=== PATIENT | female | born 1940 | race Caucasian/White ===

== ENCOUNTER 2024-10-22 13:36 | Inpatient (IN) | payer MEDICARE, SELFPAY ==
[2024-10-22] VITALS (9 sets, daily range): BP systolic 115–167; BP diastolic 59–89; BMI 26.5
[2024-10-22 10:47] LABS: % Basophils 0.9 % (0-2); % Eosinophils 2.7 % (0-6); % Immature Granulocytes 0.6 % (0-0.5); % Monocytes 6.7 % (1.7-9.3); % Neutrophils 70.1 % (42.2-75.2); Absolute Basophils 0.1 10^3/uL (0-0.2); Absolute Eosinophils 0.3 10^3/uL (0-0.7); Absolute Immature Granulocytes 0.1 10^3/uL (0-0.05); Absolute Monocytes 0.7 10^3/uL (0.1-0.6); Absolute Neutrophils 7.3 10^3/uL (1.4-6.5); Hematocrit 35.5 % (37.0-47.0); Hemoglobin 11.8 g/dL (12.0-16.0); Mean Corp Hgb Conc. 33.2 g/dL (33.0-37.0); Mean Corpuscular Hgb 29.1 pg (27.0-31.0); Mean Corpuscular Volume 87.7 fL (81.0-99.0); Mean Platelet Volume 11.5 fL (7.4-10.4); Nucleated Red Blood Cells % 0 %; Platelet Count 253 10^3/uL (130-400); Red Blood Cell Count 4.05 10^6/uL (4.20-5.40); Red Cell Dist. Width 14.6 % (11.5-14.5); White Blood Cell Count 10.4 10^3/uL (4.8-10.8)
--- NOTE | 2024-10-22 10:47 | ED.GENMED ---
History of Present Illness
General
Chief Complaint: Pneumonia Symptoms
Source: patient
Exam Limitations: none
Time Seen by Provider: 10/22/24 10:14
Nursing documentation reviewed up to this point in time: agreed with
History of Present Illness
History of Present Illness:
Patient is an 83-year-old female with history of pulmonary fibrosis, CHF, CAD presenting to the emergency department with 3 days of cough, chest tightness, and low pulse ox at urgent care. Patient reports gradually worsening dry cough, chest
tightness, and shortness of breath over the past few days. Her has similar symptoms although much more mild. She denies any associated fever, chills, abdominal pain, vomiting. She states the cough is not productive. No lower extremity
edema. No recent travel or recent surgeries.
Patient was seen in urgent care today where she was found to have a low pulse ox of 87% on room air. She was sent to the emergency department via EMS. She was negative for COVID and influenza at urgent care. They did perform a chest x-ray.
Past History
Past History
ED Past Medical History: Other (anemia)
ED Past Surgical History: Appendectomy, Cholecystectomy and Orthopedic
Review of Systems
Review of Systems
Allergies reviewed?: Yes
All Other Systems: ROS reviewed and negative except as documented in HPI and ROS
Phy Exam
Physical Exam
Physical Exam:
Vitals: Hypoxic, placed on 2 L NC. Otherwise stable vital signs.
General: Patient is well appearing, no acute distress
Skin: Warm and dry, no rashes or lesions
Head: Normocephalic, atraumatic
Eyes: Sclera nonicteric. EOMs intact. No nystagmus.
Throat: Protecting airway
Neck: Normal ROM, no cervical spine tenderness, no meningismus
Cardiac: Regular rate and rhythm, no murmurs. Mild reproducible chest wall tenderness.
Pulm: Hypoxic. Rales in b/l lower lung basilio and frequent cough. No wheeze.
Abdomen: Abdomen soft and nontender.
Extremities: No evidence of cyanosis or edema. Palpable DP pulses bilaterally
Neuro: AAOx3. Grossly intact.
Psychiatric: Normal affect.
Course
Orders/Labs/Results
Orders:
Orders
10/22/24 Lunch
Regular
At Your Request: Limited Participation
Does patient need a safe tray?: No
10/22/24 10:32
Electrocardiogram (*1) Urgent
Reason for Study: Chest Pain
EKG- Treatment ONCE
10/22/24 10:37
Complete Blood Count/With Diff Urgent
Comprehensive Metabolic Panel Urgent
NT-proBNP Urgent
Troponin I Urgent
10/22/24 11:28
CefTRIAXone [Rocephin] 1,000 mg IV NOW STA
Doxycycline [Vibramycin] 100 mg PO NOW STA
10/22/24 13:14
Admit/Transfer Patient As Directed
Co-Sign Provider:
Level of Care: Inpatient admission
Assign to:: Medical/Surgical
Physician / Group: hospitalist-Julius
Diagnosis: pna
Reason for Hospitalization: IV abx
O2 requirements
Expected length of stay greater than two midnights?: Yes
ELOS- Estimated Length of Stay in days: 3
I certify the patient meets the requirements for IP care: Yes
PRN Pain Medication Management As Directed
May give lesser potent ordered pain med per pt: Yes
preference::
Protocol:: Medication orders for pain may be administered in a
manner that supports deferring to patient preference
when the pt is:
- Requesting an ordered lesser potent pain medication.
Least to most potent pain medications are defined
as: acetaminophen < NSAID < tramadol < opioids
(morphine, oxycodone, hydromorphone).
- Requesting a lesser dose of the same medication IF
ORDERED.
- Requesting a less intrusive route of administration
if both routes are prescribed by the provider (PO <
IV).
10/22/24 13:16
Code Status As Directed
Resuscitation Status: Full Code
10/22/24 15:52
Acetaminophen [Tylenol] 650 mg PO Q4HPRN PRN
Benzonatate [Tessalon Perles] 100 mg PO TIDPRN PRN
Ipratropium/Albuterol Sulfate [Duoneb] 3 ml INH R Q4HPRN PRN
10/22/24 15:52
Respiratory Culture/Gram Stain Urgent
KARL Source: Sputum
Specimen Description:
Activity As Directed
Activity Level: Out of Bed-Early Mobility
Intake/ Output As Directed
Frequency: Per unit guidelines
Vital Signs As Directed
Frequency: Per unit guidelines
Weight As Directed
Frequency: Once
Comment: on admission
Incentive Spirometry [Rx Incentive Spirometry] [RESP] Routine
Frequency: q1h while awake
O2 Therapy [RESP] Routine
Titrate/Wean O2 to maintain O2 sat greater than (%): 90
Special Instructions: Wean as tolerated
Pt Eval And Treat Routine
Activity Level: Out of Bed-Early Mobility
DX Deep Vein Thrombosis Video Routine
10/22/24 18:00
Dexamethasone Sod Phosphate [Decadron] 4 mg IV Q8H
Enoxaparin Sodium [Lovenox] 40 mg SC QPM
10/22/24 20:00
Budesonide [Pulmicort] 0.5 mg INH R BID
Doxycycline [Vibramycin] 100 mg PO BID
Guaifenesin [Mucinex] 600 mg PO Q12
10/22/24 22:00
Atorvastatin [Lipitor] 20 mg PO HS
Gabapentin [Neurontin] 600 mg PO HS
Oxybutynin Chloride [Ditropan] 5 mg PO HS
Ropinirole [Requip] 4 mg PO HS
10/23/24 04:47
Complete Blood Count/No Diff IN AM
Comprehensive Metabolic Panel IN AM
10/23/24 07:00
Levothyroxine [Synthroid] 88 mcg PO DAILY@0700
10/23/24 08:00
Citalopram [Celexa] 20 mg PO DAILY
Ferrous Sulfate [Ferrous Sulfate Oral Liquid] 220 mg PO DAILY
Multivitamin [Theragran] 1 tablet PO DAILY
Vit C/Vit E/Lutein/Min/Dellroy-3 [Ocuvite Softgel] 1 cap PO DAILY
10/23/24 12:00
CefTRIAXone [Rocephin] 1,000 mg IV Q24H
Abnormal Lab Results
10/22/24
10:37
RBC 4.05 L 10^6/uL
(4.20-5.40)
Hgb 11.8 L g/dL
(12.0-16.0)
Hct 35.5 L %
(37.0-47.0)
RDW 14.6 H %
(11.5-14.5)
MPV 11.5 H fL
(7.4-10.4)
Abs Immat Gran (auto) 0.1 H 10^3/uL
(0-0.05)
Absolute Neuts (auto) 7.3 H 10^3/uL
(1.4-6.5)
Absolute Monos (auto) 0.7 H 10^3/uL
(0.1-0.6)
Immature Gran % 0.6 H %
(0-0.5)
Lymphocytes % 19.0 L %
(20.5-51.1)
Chloride 110 H mmol/L
(98-107)
Glucose 105 H mg/dl
(70-99)
10/22/24 10:37
10/22/24 10:37
Vital Signs
Initial and Last Documented VS:
Initial Vital Signs
Temp Pulse Resp BP Pulse Ox
97.8 F 64 20 129/70 90
10/22/24 10:10 10/22/24 10:10 10/22/24 10:10 10/22/24 10:10 10/22/24 10:10
Last Documented Vital Signs
Temp Pulse Resp BP Pulse Ox
98.4 F 84 16 112/55 95
10/23/24 07:30 10/23/24 07:41 10/23/24 07:41 10/23/24 07:30 10/23/24 10:47
MDM/Problems Addressed
Differential Diagnosis Includes:
Not limited to: Viral illness, bronchitis, pneumonia, acute CHF exacerbation, acute coronary syndrome, etc.
MDM/Problems Addressed:
83-year-old female with history as documented presenting with 3 days of cough, chest tightness, found to have low pulse ox at urgent care. No known fever. No GI symptoms. Patient arrives on 2 L O2 via nasal cannula as she was supposedly 87% on
room air at urgent care. Otherwise her vital signs are stable, she is afebrile. Physical exam as above. Heart regular rate and rhythm. Patient has frequent cough with bilateral rales on lung exam. There is no wheezing. Abdomen soft and
nontender. No lower extremity edema. Overall impression is likely infectious process including viral illness, bronchitis, or pneumonia. Will obtain basic labs. Low suspicion for acute coronary syndrome although will check troponin. Will have
radiology input chest x-ray obtained for urgent care for review.
Update: Labs reviewed. No leukocytosis. Mild anemia which is stable. Labs unremarkable. Troponin undetectable. Chest x-ray reviewed by me which shows a suspected left lower lobe pneumonia. Patient is requiring supplemental oxygen. In lieu of
this�will admit for IV antibiotics, continued management. Borderline prolonged QTc on EKG�will initiate Rocephin, p.o. doxycycline in ED. Patient accepted to hospitalist service in stable condition.
Chronic conditions affecting care:
Congestive heart failure, CAD
Acute Exacerbation and/or Progression of Chronic Illness:
N/A
*Pulse Oximetry
Patient hypoxic: yes (Arrives on 2 L nasal cannula, 87% on room air at )
*EKG
Interpreted by ED Provider?: Yes
EKG Intrepretation Date: 10/22/24
Interpretation: abnormal
Comparison EKG: changes noted
Heart Rate: 63
Rate: normal
Rhythm: sinus
[place]: normal axis
Interval: long QT
QRS Pattern: right bundle branch block
Ischemia: no ischemia
*Skin Care Instructor Interpretation
Rate: Skin Care Instructor- N/A
*Critical Care Note
Total Time (30-74mins, 75-104mins- exclusive of procedures): Not Applicable
Data Reviewed
Review of Other/Old Records Reveals: Radiology Studies (Chest x-ray performed urgent care-opacity left lower lobe)
Source: previous radiology exam
Patient Management
Discussion with other providers: Hospitalist
Escalation/DeEscalation of care consider admission/obs:
Admit indicated
ED Attending Note
-
Portions of this chart may have been created with voice recognition software.� Occasional wrong word or��sound alike� substitutions may have occurred due to the inherent limitations of voice recognition software.
Discharge Plan
Departure
Patient Disposition: Admit
Date of Disposition: 10/22/24
Time of Disposition: 11:28
Presentation/result/management discussed w/ accepting MD/DO: Hospitalist
Discharge Problem:
Left lower lobe pneumonia, Acute hypoxemic respiratory failure
Interventions
Interventions:
*Risk Screen - Suicide Last Done: 10/22/24 10:10
*General Assessment Last Done: 10/22/24 10:10
*Neglect/Abuse Screening Last Done: 10/22/24 10:10
*ED- Fall Risk Assessment Last Done: 10/22/24 15:22
*ED COVID-19 Vaccine History Last Done: 10/22/24 11:00
*Nursing Disposition Last Done: 10/22/24 15:48
ED- Cardiac Assessment Last Done: 10/22/24 11:00
ED- Pulmonary Assessment Last Done: 10/22/24 11:00
Discharge Date and Time
Discharge Date/Time: 10/22/24 15:48
[2024-10-22 10:58] LABS: ALT (SGPT) 19 U/L (0-35); AST (SGOT) 34 U/L (14-36); Albumin 4.4 g/dl (3.5-5.0); Alkaline Phosphatase 111 U/L (38-126); Blood Urea Nitrogen 13 mg/dl (7-17); Calcium 9.6 mg/dl (8.4-10.2); Carbon Dioxide 22 mmol/L (22-30); Chloride 110 mmol/L (98-107); Glucose 105 mg/dl (70-99); Potassium 4.1 mmol/L (3.5-5.1); Sodium 144 mmol/L (135-145); Total Bilirubin 0.8 mg/dl (0.2-1.3); Total Protein 7.7 g/dl (6.3-8.2); eGFR > 60.00
[2024-10-22 11:09] LABS: NT-proBNP 774 pg/ml; Troponin I < 0.012 ng/ml
[2024-10-22] MEDS: VIBRAMYCIN 100 MG PO ×2 (11:58→20:00)
[2024-10-22] MEDS: ROCEPHIN 1000 MG IV (11:58)
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
--- NOTE | 2024-10-22 16:00 | CM ---
requirements manager reviewed patient's chart and met with patient and daughter and granddaughter at bedside, patient lives with spouse, Macho and daughter in a one story home, patient is independent with adl's and ambulation, no dme, home when stable, no
needs.
PCP: Dr Grey Headley
Pharmacy: [facility] in [place]
Plan; Home when stable, no needs.
--- NOTE | 2024-10-22 17:05 | PTCARENOTE ---
Pt was received from ED at 1600. Pt walked to the room with assistance of one person. Pt is AAOx3, dyspnea on exertion and at rest. 2L NC on, POX 96%. Pt resting in bed, conversing with family at the bedside.
[2024-10-22] MEDS: DECADRON 4 MG IV (17:50)
[2024-10-22] MEDS: LOVENOX 40 MG SC (17:50)
[2024-10-22] MEDS: PULMICORT 0.5 MG INH (19:34)
[2024-10-22] MEDS: DUONEB 3 ML INH (19:35)
[2024-10-22] MEDS: MUCINEX 600 MG PO (20:00)
[2024-10-22] MEDS: NEURONTIN 600 MG PO (21:06)
[2024-10-22] MEDS: DITROPAN 5 MG PO (21:06)
[2024-10-22] MEDS: LIPITOR 20 MG PO (21:07)
[2024-10-22] MEDS: REQUIP 4 MG PO (21:07)
[2024-10-23] MEDS: DECADRON 4 MG IV ×3 (03:02→17:39)
[2024-10-23 05:11] VITALS: BMI 26.3
[2024-10-23] MEDS: SYNTHROID 88 MCG PO (05:41)
[2024-10-23 05:44] LABS: Hematocrit 32.7 % (37.0-47.0); Hemoglobin 10.6 g/dL (12.0-16.0); Mean Corp Hgb Conc. 32.4 g/dL (33.0-37.0); Mean Corpuscular Hgb 28.6 pg (27.0-31.0); Mean Corpuscular Volume 88.4 fL (81.0-99.0); Mean Platelet Volume 11.8 fL (7.4-10.4); Platelet Count 259 10^3/uL (130-400); Red Cell Dist. Width 14.6 % (11.5-14.5); White Blood Cell Count 9.3 10^3/uL (4.8-10.8)
[2024-10-23 06:11] LABS: ALT (SGPT) 15 U/L (0-35); AST (SGOT) 25 U/L (14-36); Albumin 3.4 g/dl (3.5-5.0); Alkaline Phosphatase 93 U/L (38-126); Blood Urea Nitrogen 14 mg/dl (7-17); Calcium 9.1 mg/dl (8.4-10.2); Carbon Dioxide 23 mmol/L (22-30); Chloride 111 mmol/L (98-107); Estimated Creatinine Clearance 39 ml/min; Glucose 146 mg/dl (70-99); Potassium 4.9 mmol/L (3.5-5.1); Sodium 143 mmol/L (135-145); Total Bilirubin 0.5 mg/dl (0.2-1.3); Total Protein 6.4 g/dl (6.3-8.2); eGFR > 60.00
[2024-10-23 07:30] VITALS: BP 112/55
[2024-10-23] MEDS: PULMICORT 0.5 MG INH ×2 (07:38→18:41)
[2024-10-23] MEDS: THERAGRAN 1 TABLET PO (08:28)
[2024-10-23] MEDS: MUCINEX 600 MG PO ×2 (08:28→21:13)
[2024-10-23] MEDS: CELEXA 20 MG PO (08:28)
[2024-10-23] MEDS: OCUVITE SOFTGEL 1 CAP PO (08:28)
[2024-10-23] MEDS: FERROUS SULFATE ORAL LIQUID 220 MG PO (08:28)
[2024-10-23] MEDS: VIBRAMYCIN 100 MG PO ×2 (08:28→21:13)
[2024-10-23] MEDS: TESSALON PERLES 100 MG PO (08:41)
--- NOTE | 2024-10-23 11:26 | W.PN.HOSP.TC ---
Today's Communication/Plan
-
wean O2 to off
cont ABX
repeat CXR in AM
consider pulm consult in AM
Assessment / Plan
Assessment / Plan
pt is an 83 year old female
Acute hypoxemic respiratory insufficiency--likely due to community-acquired pneumonia (does not meet sepsis criteria)--continue supplemental oxygen and wean as able keeping pulse ox greater than 90%--continue Rocephin and doxycycline--add incentive
spirometer, DuoNebs, Tessalon Perles--continue inhaled steroids (Pulmicort)--start IV Decadron 4 mg IV every 8-- consult pulmonary in AM--recheck CXR in AM
Restless leg syndrome--continue gabapentin and ropinirole
Hypothyroidism--continue levothyroxine
Hyperlipidemia--continue simvastatin
Overactive bladder--continue oxybutynin
DVT proph--Lovenox subcu
CODE STATUS--full code
Anticipated Discharge: 24 - 48 hours
Subjective/Interval History
-
Date of Service: October 23, 2024
pt down to 1/2L of O2 at 95%--coughs with deep breaths
Objective Data
-
Labs:
Laboratory Results
10/23/24
04:47
WBC 9.3
Hgb 10.6 L
Hct 32.7 L
Plt Count 259
Sodium 143
Potassium 4.9
Chloride 111 H
Carbon Dioxide 23
BUN 14
Creatinine 0.8
Glucose 146 H
Calcium 9.1
Total Bilirubin 0.5
AST 25
ALT 15
Alkaline Phosphatase 93
Vital Signs:
max temp for 24 hours
10/23/24
07:30
Temp 98.4 F
Vital Signs
Temp Pulse Resp BP Pulse Ox
98.4 F 84 16 112/55 95
10/23/24 07:30 10/23/24 07:41 10/23/24 07:41 10/23/24 07:30 10/23/24 10:47
I&O
10/22/24 10/23/24 10/24/24
06:59 06:59 06:59
Intake Total 120 / 120
Balance 120 / 120
Review of Systems
-
All other systems: Reviewed and negative
Physical Exam
-
General: Well Developed, Well Nourished and No Apparent Distress
HEENT: Normocephalic, Atraumatic and Oxygen
Respiratory: Rhonchi (bilateral bases)
Cardiac: Regular Rhythm and S1/S2; Negative Murmur
GI: Soft, Nontender, Nondistended and Normal Bowel Sounds
Musculoskeletal: No Clubbing, No Cyanosis and No Edema
Skin: Warm
Neuro: Awake
[2024-10-23] MEDS: ROCEPHIN 1000 MG IV (11:33)
[2024-10-23] MEDS: STERILE WATER FOR INJECTION 10 ML IV (11:34)
[2024-10-23 14:13] VITALS: PULSE 82
[2024-10-23 15:39] VITALS: BP 125/56
[2024-10-23] MEDS: LOVENOX 40 MG SC (17:39)
[2024-10-23] MEDS: DUONEB 3 ML INH (18:41)
[2024-10-23] MEDS: NEURONTIN 600 MG PO (21:12)
[2024-10-23] MEDS: DITROPAN 5 MG PO (21:13)
[2024-10-23] MEDS: REQUIP 4 MG PO (21:13)
[2024-10-23] MEDS: LIPITOR 20 MG PO (21:13)
[2024-10-23 23:23] VITALS: BP 131/66
[2024-10-24] MEDS: DECADRON 4 MG IV ×3 (01:15→19:59)
[2024-10-24 05:38] VITALS: BMI 26.4
[2024-10-24] MEDS: SYNTHROID 88 MCG PO (06:02)
[2024-10-24] MEDS: DUONEB 3 ML INH ×2 (07:28→19:45)
[2024-10-24] MEDS: PULMICORT 0.5 MG INH ×2 (07:28→19:44)
[2024-10-24 07:30] VITALS: BP 104/67
[2024-10-24] MEDS: VIBRAMYCIN 100 MG PO ×2 (09:03→20:00)
[2024-10-24] MEDS: OCUVITE SOFTGEL 1 CAP PO (09:04)
[2024-10-24] MEDS: CELEXA 20 MG PO (09:04)
[2024-10-24] MEDS: THERAGRAN 1 TABLET PO (09:04)
[2024-10-24] MEDS: FERROUS SULFATE ORAL LIQUID 220 MG PO (09:04)
[2024-10-24] MEDS: MUCINEX 600 MG PO ×2 (09:04→20:00)
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
[2024-10-24] MEDS: STERILE WATER FOR INJECTION 10 ML IV (12:05)
[2024-10-24] MEDS: ROCEPHIN 1000 MG IV (12:05)
[2024-10-24] MEDS: MOTRIN 200 MG PO ×2 (13:37→20:01)
[2024-10-24 15:25] VITALS: BP 167/77
--- NOTE | 2024-10-24 15:34 | W.PN.HOSP.TC ---
Addendum entered and electronically signed by Quin Madrid MD 10/24/24 16:27:
I saw and evaluated the patient independently. I reviewed the resident�s note and agree with findings and plan as documented by Dr. Verde.
GENERAL: well developed, well nourished, female in no apparent distress
HEENT: NC/AT -- O2 NC 2L
HEART: regular rate and rhythm, +S1, +S2
LUNGS : coarse crackles bilaterally, no wheezing with decreased BS at bases
ABDOM: soft, nontender, nondistended, + bowel sounds
EXT: no cyanosis, clubbing, or edema
NEUROLOGIC: grossly intact
Acute hypoxemic respiratory insufficiency--likely due to community-acquired pneumonia (does not meet sepsis criteria)--continue supplemental oxygen and wean as able keeping pulse ox greater than 90%--continue Rocephin and doxycycline--add incentive
spirometer, Rachael Eugene--continue inhaled steroids (Pulmicort)--start IV Decadron 4 mg IV every 8-- consult pulmonary in AM (pt with hx of pulm fibrosis)--recheck CXR shows pna resolved--will need home O2 assessment--procalcitonin
pending
Restless leg syndrome--continue gabapentin and ropinirole
Hypothyroidism--continue levothyroxine
Hyperlipidemia--continue simvastatin
Overactive bladder--continue oxybutynin
DVT proph--Lovenox subcu
CODE STATUS--full code
Original Note:
Today's Communication/Plan
-
Continue IV Decadron
Home O2 evaluation eventually
Chest CT if symptoms do not improve
Continue antibiotics for now to complete 5-day course
Assessment / Plan
Assessment / Plan
Impression
Acute hypoxic respiratory insufficiency
Restless leg syndrome
Hypothyroidism
Hyperlipidemia
Overactive bladder
Plan
Acute hypoxic acute hypoxic respiratory insufficiency
Likely due to CAP/interstitial pulmonary fibrosis
Continue supplemental oxygen, wean as able keep pulse ox greater than 90%
Continue IV Decadron
Tylenol and Motrin for CP with cough
Continue nebsRachael
Home O2 assessment eventually
Pulmonology following
Procalcitonin pending
Repeat chest CT if symptoms are not improving
Restless leg syndrome--continue gabapentin and ropinirole
Hypothyroidism--continue levothyroxine
Hyperlipidemia--continue simvastatin
Overactive bladder--continue oxybutynin
DVT proph--Lovenox subcu
CODE STATUS--full code
Anticipated Discharge: > 48 hours
Subjective/Interval History
-
Date of Service: October 24, 2024
No overnight events
Objective Data
-
Vital Signs:
Vital Signs
Temp Pulse Resp BP Pulse Ox
97.8 F 74 16 104/67 92
10/24/24 07:30 10/24/24 07:32 10/24/24 07:32 10/24/24 07:30 10/24/24 09:30
I&O
10/23/24 10/24/24 10/25/24
06:59 06:59 06:59
Intake Total 120 / 120 660 / 660
Balance 120 / 120 660 / 660
Review of Systems
-
All other systems: Reviewed and negative
Physical Exam
-
General: No Apparent Distress and Comfortable
HEENT: Normocephalic and Atraumatic
Respiratory: Crackles and Decreased Breath Sounds (Left lower)
Cardiac: Regular Rhythm and S1/S2; Negative Murmur or Rub
GI: Soft, Nontender and Nondistended
Musculoskeletal: No Edema
Neuro: AO x 3
Psych: Calm
Data Reviewed
-
Diagnostic Radiology: Image personally visualized and interpreted, Report Reviewed by me and Discussed with Physician
Labs: Labs Reviewed by me and Discussed with Physician
--- NOTE | 2024-10-24 15:44 | CM ---
Patient seen at bedside with and physicians. Patient for home O2 assessment closer to D/C and may benefit from home with VN. Patient and open to possibility. CM will continue to follow for discharge planning needs.
Plan;home with VN and watch for home O2 needs.
[2024-10-24] MEDS: LOVENOX 40 MG SC (17:14)
[2024-10-24] MEDS: TYLENOL 650 MG PO (17:14)
--- NOTE | 2024-10-24 17:46 | PTCARENOTE ---
Received patient this am AAOx3. Pt off unit for Chest X-ray this am. Pt ambulating to bathroom with stand by assistance. Pt tolerated diet well. Pt complained of muscle pain secondary to coughing. Pt medicated with Motrin with moderate relief. Pt
then ordered scheduled Tylenol starting at 1800. Made patient comfortable. Cont to assess patient status.
[2024-10-24] MEDS: ROBITUSSIN 200 MG PO (20:01)
[2024-10-24] MEDS: NEURONTIN 600 MG PO (21:33)
[2024-10-24] MEDS: LIPITOR 20 MG PO (21:34)
[2024-10-24] MEDS: DITROPAN 5 MG PO (21:34)
[2024-10-24] MEDS: REQUIP 4 MG PO (21:34)
[2024-10-24] MEDS: ANESTHETIC LOZENGE 1 LOZENGE PO (22:57)
[2024-10-24 23:07] VITALS: BP 137/68
[2024-10-25] MEDS: TYLENOL PO (01:00)
[2024-10-25] MEDS: SYNTHROID 88 MCG PO (05:48)
[2024-10-25] MEDS: TYLENOL 650 MG PO ×2 (05:48→12:11)
[2024-10-25 06:29] VITALS: BMI 26.6
[2024-10-25 06:38] LABS: % Basophils 0.3 % (0-2); % Eosinophils 0.4 % (0-6); % Immature Granulocytes 1.3 % (0-0.5); % Lymphocytes 9.4 % (20.5-51.1); % Monocytes 5.1 % (1.7-9.3); % Neutrophils 83.5 % (42.2-75.2); Absolute Eosinophils 0.1 10^3/uL (0-0.7); Absolute Immature Granulocytes 0.2 10^3/uL (0-0.05); Absolute Lymphocytes 1.3 10^3/uL (1.2-3.4); Absolute Monocytes 0.7 10^3/uL (0.1-0.6); Absolute Neutrophils 11.2 10^3/uL (1.4-6.5); Hematocrit 31.3 % (37.0-47.0); Hemoglobin 10.8 g/dL (12.0-16.0); Mean Corp Hgb Conc. 34.5 g/dL (33.0-37.0); Mean Corpuscular Hgb 29.8 pg (27.0-31.0); Mean Corpuscular Volume 86.5 fL (81.0-99.0); Nucleated Red Blood Cells % 0 %; Red Blood Cell Count 3.62 10^6/uL (4.20-5.40); Red Cell Dist. Width 14.8 % (11.5-14.5); White Blood Cell Count 13.5 10^3/uL (4.8-10.8)
[2024-10-25 06:50] LABS: Blood Urea Nitrogen 29 mg/dl (7-17); Calcium 9.3 mg/dl (8.4-10.2); Carbon Dioxide 20 mmol/L (22-30); Chloride 110 mmol/L (98-107); Estimated Creatinine Clearance 35 ml/min; Glucose 150 mg/dl (70-99); Magnesium 1.8 mg/dl (1.6-2.3); Potassium 4.4 mmol/L (3.5-5.1); Sodium 140 mmol/L (135-145); eGFR > 60.00
[2024-10-25 07:04] LABS: Procalcitonin < 0.05 ng/ml (0.0-0.25)
[2024-10-25] MEDS: DUONEB 3 ML INH (07:16)
[2024-10-25] MEDS: PULMICORT 0.5 MG INH (07:16)
[2024-10-25 07:21] LABS: Mean Platelet Volume 12.7 fL (7.4-10.4); Platelet Count 232 10^3/uL (130-400)
[2024-10-25 07:25] VITALS: BP 126/66
[2024-10-25] MEDS: THERAGRAN 1 TABLET PO (09:06)
[2024-10-25] MEDS: CELEXA 20 MG PO (09:06)
[2024-10-25] MEDS: MUCINEX 600 MG PO (09:06)
[2024-10-25] MEDS: DECADRON 4 MG IV (09:07)
[2024-10-25] MEDS: VIBRAMYCIN PO (09:07)
[2024-10-25] MEDS: FERROUS SULFATE ORAL LIQUID 220 MG PO (09:07)
[2024-10-25] MEDS: OCUVITE SOFTGEL 1 CAP PO (09:07)
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
[2024-10-25 11:02] VITALS: PULSE 91; O2SAT 93
[2024-10-25] MEDS: MOTRIN 200 MG PO (12:19)
[2024-10-25 15:25] VITALS: BP 115/74
--- NOTE | 2024-10-25 15:37 | CM ---
Patient seen at bedside with physician and patient . Patient did not qualify for home O2 per physician and declined VN. Patient completed IMM and signed form placed on chart. Patient for discharge later today. CM will continue to follow for
discharge planning needs.
Plan; for home with no needs.
--- NOTE | 2024-10-25 15:45 | W.PN.HOSP.TC ---
Addendum entered and electronically signed by Quin Madrid MD 10/25/24 16:33:
I saw and evaluated the patient independently. I reviewed the resident�s note and agree with findings and plan as documented by Dr. Verde.
GENERAL: well developed, well nourished, female in no apparent distress
HEENT: NC/AT
HEART: regular rate and rhythm, +S1, +S2
LUNGS : coarse crackles bilaterally, no wheezing with decreased BS at bases
ABDOM: soft, nontender, nondistended, + bowel sounds
EXT: no cyanosis, clubbing, or edema
NEUROLOGIC: grossly intact
Acute hypoxemic respiratory insufficiency--likely due to community-acquired pneumonia (does not meet sepsis criteria)--continue supplemental oxygen and wean as able--assessment for home O2 does not qualify for O2--stop Rocephin and doxycycline--add
incentive spirometer, Rachael Eugene--continue inhaled steroids (Pulmicort)-- IV Decadron 4 mg IV every 8 changing to prednisone taper-- apprec pulmonary in AM (pt with hx of pulm fibrosis)--recheck CXR shows pna resolved---procalcitonin
neg
Restless leg syndrome--continue gabapentin and ropinirole
Hypothyroidism--continue levothyroxine
Hyperlipidemia--continue simvastatin
Overactive bladder--continue oxybutynin
DVT proph--Lovenox subcu
CODE STATUS--full code
Original Note:
Today's Communication/Plan
-
Discharge plan today. Passed home O2 eval test. No oxygen needed at home.
Dispo medications :
Prednisone taper
Doxycycline 100 mg twice daily to complete full 5-day course
Outpatient follow-up with pulmonology
Continue all other home medications
Assessment / Plan
Assessment / Plan
Impression
Acute hypoxic respiratory insufficiency
Restless leg syndrome
Hypothyroidism
Hyperlipidemia
Overactive bladder
Plan
Acute hypoxic acute hypoxic respiratory insufficiency-- resolved
Likely due to CAP/interstitial pulmonary fibrosis
Transition to prednisone taper
Tylenol and Motrin for CP with cough
Continue Rachael oquendo
Home O2 assessment reveals 88 to 90% on room air. No O2 needed at home
Stopped antibiotic with negative procalcitonin
Discharge plan today
Patient requested to finish antibiotics, can complete doxycycline for 5 days total
Restless leg syndrome--continue gabapentin and ropinirole
Hypothyroidism--continue levothyroxine
Hyperlipidemia--continue simvastatin
Overactive bladder--continue oxybutynin
DVT proph--Lovenox subcu
CODE STATUS--full code
Anticipated Discharge: Today
Subjective/Interval History
-
Date of Service: October 25, 2024
No overnight events
Objective Data
-
Labs:
Laboratory Results
10/25/24
05:59
WBC 13.5 H
Hgb 10.8 L
Hct 31.3 L
Plt Count 232
Sodium 140
Potassium 4.4
Chloride 110 H
Carbon Dioxide 20 L
BUN 29 H
Creatinine 0.9
Glucose 150 H
Calcium 9.3
Vital Signs:
Vital Signs
Temp Pulse Resp BP Pulse Ox
98.6 F 71 18 126/66 96
10/25/24 07:25 10/25/24 07:25 10/25/24 07:25 10/25/24 07:25 10/25/24 09:20
I&O
10/24/24 10/25/24 10/26/24
06:59 06:59 06:59
Intake Total 660 / 660 900 / 900
Balance 660 / 660 900 / 900
Review of Systems
-
All other systems: Reviewed and negative
Physical Exam
-
General: No Apparent Distress and Comfortable
HEENT: Normocephalic and Atraumatic
Respiratory: Crackles (Bilaterally at the bases)
Cardiac: Regular Rhythm and S1/S2
GI: Soft, Nontender and Nondistended
Musculoskeletal: No Edema
Neuro: AO x 3
Psych: Calm
Data Reviewed
-
Diagnostic Radiology: Image personally visualized and interpreted, Report Reviewed by me and Discussed with Physician
Labs: Labs Reviewed by me and Discussed with Physician
--- NOTE | 2024-10-25 17:35 | W.DCSUMMARY ---
Addendum entered and electronically signed by Quin Madrid MD 10/26/24 06:58:
Read, reviewed, and agree. See same day progress note for additional details. Time spent coordinating care, DC planning, review of DC plan of care with resident, transition of care, review of records in EMR, med rec, consults, notes, d/w
consultants, nursing, family, and CM = 31 minutes
Original Note:
Discharge Summary
Discharge Data
Date of Admission: 10/22/24
Date of Discharge: 10/25/24
-
Pending Results: No
Hospital Course
Discharging Physician : Dr Dixie Verde, Dr Quin Madrid
Disposition : Home
Primary care physician : Grey Headley
Principal Discharge diagnosis :
Acute hypoxic acute hypoxic respiratory insufficiency likely due to CAP/interstitial pulmonary fibrosis
Chronic Discharge diagnosis :
History of pulmonary fibrosis
Restless leg syndrome
Hypothyroidism
Hyperlipidemia
Overactive bladder
Hospital Course : 83-year-old female with history of interstitial pulmonary fibrosis presented with hypoxia from urgent care. Patient was started on IV antibiotics, DuoNebs, incentive spirometer, Pulmicort and IV Decadron. Pulmonology was
consulted. They were not impressed with a chest x-ray and patient's symptoms was likely an acute exacerbation of IPF. Procalcitonin was negative. IV antibiotics were stopped. Home O2 eval revealed O2 >88% on RA, no O2 needed at home. At
discharge she is hemodynamically stable, transitioned to oral prednisone taper and an additional dose of doxycycline to complete total 5-day course. Advised to follow-up with pulmonology outpatient
Important imaging findings :
10/25/2024 CXR
No acute cardiopulmonary process. Stable mild chronic fibrosis.
Procedure findings : none
Discharge Plan
-
Patient Disposition: Home (Routine Discharge)
Discharge Diagnosis/Procedures: Acute hypoxic respiratory insufficiency
Restless leg syndrome
Hypothyroidism
Hyperlipidemia
Overactive bladder
Condition: Good
Diet: Regular
Activity: No restrictions
Driving Restrictions: As prior to admission
Bathing Restrictions: None
Other Services: VN
Referrals:
Aracely Joseph, DO [Active] - in two to three weeks
(PFT w/ ORDER PROCESSING SPECIALIST
Can keep upcoming appt with Dr Parnell as well)
Grey Headley MD [Family Provider] -
Additional Discharge Medication Instructions:
Continue doxycycline 100 mg twice a day for an additional day to complete 5-day course total
Start taking prednisone taper as instructed
Take 50mg x 3 days
40 mg x 3 days
30mg x 3 days
20mg x 3 days
10 mg x 3 days
Continue Robitussin and Mucinex for cough
Continue home medication and inhalers--- follow-up with outpatient pulmonology
Prescriptions:
New
prednisone 10 mg Tablet
See Rx Instructions .ROUTE .COMPLEX Qty: 45 0RF
Rx Instructions:
By Mouth
50 mg daily x3 days, 40 mg daily x3 days,
30 mg daily x3 days, 20 mg daily x3 days,
10 mg daily x3 days
doxycycline hyclate 100 mg tablet
100 mg PO BID 1 Days Qty: 2 0RF
Continued
simvastatin 40 MG tablet
40 mg PO HS
ropinirole 2 MG tablet
4 mg PO HS
ferrous sulfate 300 MG/5 ML liquid
220 mg PO DAILY
oxybutynin chloride 5 MG tablet
5 mg PO HS
Patient Comments:
Last fill for oxybutynin was for 10mg, but patient says she is taking 5mg
PreserVision AREDS 1 CAP capsule
1 cap PO BID
citalopram 20 MG tablet
20 mg PO DAILY
Patient Comments:
Patient states that pulminologist told her to stop taking this while she was using nebulizer treatments
albuterol sulfate 2.5 mg /3 mL (0.083 %) solution for nebulization
2.5 mg inhalation R Q6HPRN PRN (Reason: sob)
therapeutic multivitamin Tablet
1 tab PO DAILY
acetaminophen 500 mg Tablet
1,000 mg PO DAILYPRN PRN (Reason: mild pain)
levothyroxine 88 mcg Tablet
88 mcg PO DAILY
gabapentin 300 mg Capsule
600 mg PO HS
budesonide 0.5 mg/2 mL suspension for nebulization
0.5 mg inhalation R BID
albuterol sulfate 90 mcg/actuation HFA aerosol inhaler
2 puff INHALATION R Q6HPRN PRN (Reason: sob)
ibandronate 150 mg tablet
150 mg PO MONTHLY
Spiriva Respimat 1.25 mcg/actuation mist
2 puff INHALATION R DAILY
Discharge Orders:
Discharge Patient (As Directed); Ordered 10/25/24
Ordered By: Dixie Verde
Discharge Date and Time
Discharge Date/Time: 10/25/24 17:01
Print Language: PERSIAN
== END 2024-10-25 17:01 | disposition home or self-care (01) | DRG 196 ==
LOC: 4 EAST ACU 13:36
PROVIDERS: Physician Assistant; Student in an Organized Health Care Education/Training Program; ADMITTING PHYSICIAN Internal Medicine; CONSULT PHYSICIAN Internal Medicine; EMERGENCY PHYSICIAN Student in an Organized Health Care Education/Training Program; FAMILY PHYSICIAN Internal Medicine
DX: J84.112 Idiopathic pulmonary fibrosis (principal); J18.9 Pneumonia, unspecified organism; J44.0 Chronic obstructive pulmonary disease with (acute) lower respiratory infection; R09.02 Hypoxemia; G25.81 Restless legs syndrome; E03.9 Hypothyroidism, unspecified; E78.00 Pure hypercholesterolemia, unspecified; N32.81 Overactive bladder; Z79.890 Hormone replacement therapy; Z79.899 Other long term (current) drug therapy; Z87.01 Personal history of pneumonia (recurrent); I25.10 Atherosclerotic heart disease of native coronary artery without angina pectoris; Z82.49 Family history of ischemic heart disease and other diseases of the circulatory system; Z82.5 Family history of asthma and other chronic lower respiratory diseases; Z79.51 Long term (current) use of inhaled steroids; Z96.652 Presence of left artificial knee joint; R53.82 Chronic fatigue, unspecified; D64.9 Anemia, unspecified; N28.9 Disorder of kidney and ureter, unspecified; Z87.891 Personal history of nicotine dependence; I25.2 Old myocardial infarction; I45.10 Unspecified right bundle-branch block
CPT/HCPCS: 71046; 80048; 80053; 83735; 83880; 84145; 84484; 85025; 85027; 93005; 94640; 96374; 97116; 97163; 99284

== ENCOUNTER → 2024-11-18 13:02 | Outpatient (REF) | payer MEDICARE, SELFPAY | LOC: RCS 13:02 | PROVIDERS: ATTENDING PHYSICIAN Physician Assistant; FAMILY PHYSICIAN Internal Medicine | DX: R06.00 Dyspnea, unspecified (principal) | CPT/HCPCS: 93306 ==